=== PATIENT | female | born 1950 | race Caucasian/White ===

== ENCOUNTER 2018-04-05 12:46 | Day surgery (SDC) | payer MEDICARE, BC ==
[2018-04-05 13:09] VITALS: BP 140/88
[2018-04-05] MEDS ORDERED: Bupivacaine 0.25% W/EPI* 10 ML SDV ONE (14:03)
[2018-04-05] MEDS ORDERED: Lidocaine 2% JELLY* 20 ML (for OR use) ONE (14:03)
--- NOTE | 2018-04-06 03:51 | OP ---
DATE OF OPERATION: 04/05/18 [facility] DATE OF : 50 ATTENDING SURGEON: Brennen Lubin MD ELECTRICAL TRYOUT PERSON: None. ANESTHESIA: Local. 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 POST-OP DIAGNOSIS: Leukoplakia of the oral tongue. OPERATIVE PROCEDURE: CO2 laser ablation of leukoplakia of the oral tongue. ESTIMATED BLOOD LOSS: Negligible. SPECIMENS: None. INDICATION: This is a 67-year-old woman with a smoking history, who developed leukoplakia on the right side of the oral tongue. Biopsy done by another social media project manager revealed a benign verrucous lesion. Unfortunately, the lesion has progressed to involve a relatively large area of the patient's oral tongue and she has started to have a little bit of pain. The decision was made given the relatively wide area as the lesion to bring the patient the operating room for CO2 ablation under local anesthesia. DESCRIPTION OF PROCEDURE: The patient was draped and a time-out was performed, and 4% lidocaine jelly was applied to the right lateral oral tongue and then approximately 6 mL of 0.25% Marcaine with epinephrine were used to infiltrate the submucosal space of the oral tongue. Once adequate time had been allotted for vasoconstriction and anesthesia to be achieved, the procedure was begun. A was used to retract the patient's cheek. The tongue was retracted to the left. The patient's face was draped with saline moistened towels and the laser was used to essentially resurface the entire area of leukoplakia on the right lateral oral tongue. A setting of 3.5 gaspar was used. There was minimal bleeding. Frequent breaks were given to the patient to allow for swallowing and for areas of to be wiped off. At the conclusion of the procedure, the patient was brought to the recovery room in stable condition. [id number]/[facility] #: [id number] [facility]ENTER[facility]
== END 2018-04-05 16:00 | disposition home or self-care (01) ==
LOC: OR 12:46
PROVIDERS: ATTEND Otolaryngology
DX: K13.21 Leukoplakia of oral mucosa, including tongue (principal); Z87.891 Personal history of nicotine dependence; J44.9 Chronic obstructive pulmonary disease, unspecified; M81.0 Age-related osteoporosis without current pathological fracture; K21.9 Gastro-esophageal reflux disease without esophagitis; Z85.828 Personal history of other malignant neoplasm of skin; M19.90 Unspecified osteoarthritis, unspecified site; I71.9 Aortic aneurysm of unspecified site, without rupture

== ENCOUNTER 2018-11-15 09:06 | Emergency (ER) | payer MEDICARE, BC ==
[2018-11-15 09:31] VITALS: BP 126/76
--- NOTE | 2018-11-15 11:51 | UC ---
Complaint Female HPI - HPI Summary HPI Summary: PATIENT COMES IN CONCERNED ABOUT UTI. STATES THAT FOR A FEW DAYS SHE HAS HAD MID RIGHT SIDED ABDOMINAL PAIN THAT ONLY OCCURS WHEN SHE IS TRYING TO URINATE. HAS A SENSATION OF INCOMPLETE VOIDING AND HAS NOTED A LOWER THAN NORMAL AMOUNT OF URINE OUTPUT. NO FEVER, NAUSEA, BACK PAIN. DENIES URINARY FREQUENCY OR URGENCY. - History Of Current Complaint Chief Complaint: UCGU Stated Complaint: URINARY Time Seen by Provider: 11/15/18 10:19 Hx Obtained From: Patient Hx Last Menstrual Period: n/a Onset/Duration: Lasting Days, Still Present Severity Initially: Moderate Severity Currently: Moderate Pain Intensity: 0 Pain Scale Used: 0-10 Numeric Character: Dull Aggravating Factor(s): Urination Alleviating Factor(s): Nothing Associated Signs And Symptoms: Negative: Fever, Back Pain, Vaginal Bleeding/ Discharge, Nausea - Allergies/Home Medications Allergies/Adverse Reactions: Allergies Allergy/AdvReac Type Severity Reaction Status Date / Time No Known Allergies Allergy Verified 11/15/18 09:28 Home Medications: Home Medications Famotidine TAB* [Pepcid 20 MG TAB*] 20 mg PO DAILY 11/15/18 [History Confirmed 11/15/18] PMH/Surg Hx/FS Hx/Imm Hx Respiratory History: COPD, Asthma Other History Of: Negative For: HIV, Hepatitis B, Hepatitis C, Anticoagulant Therapy - Surgical History Surgical History: Yes Surgery Procedure, Year, and Place: R 2006 - Family History Known Family History: Positive: Cardiac Disease Negative: Hypertension - Social History Alcohol Use: None Substance Use Type: None Smoking Status (MU): Former Smoker Review of Systems All Other Systems Reviewed And Are Negative: Yes Constitutional: Positive: Negative Respiratory: Positive: Negative Cardiovascular: Positive: Negative Physical Exam Triage Information Reviewed: Yes Appearance: Well-Appearing, No Pain Distress, Well-Nourished Vital Signs: Initial Vital Signs Temp 98.6 F 11/15/18 09:27 Pulse 68 11/15/18 09:27 Resp 16 11/15/18 09:27 BP 126/76 11/15/18 09:27 Pulse Ox 98 11/15/18 09:27 Laboratory Tests 11/15/18 11:42 POC Urine Color Yellow POC Urine Clarity Clear POC Urine pH 5.5 POC Ur Specif [place] >= 1.030 POC Urine Protein 2+ A POC Ur Glucose (UA) Negative POC Urine Ketones Negative POC Urine Blood 3+ A POC Urine Nitrite Positive A POC Urine Bilirubin Negative POC Urine Urobilinogen 0.2 POC U Leukocyte Esteras 3+ A Vital Signs Reviewed: Yes Eyes: Positive: Conjunctiva Clear ENT: Positive: Hearing grossly normal Neck: Positive: Supple Respiratory Exam: Normal Cardiovascular Exam: Normal Abdomen Description: Positive: Nontender, Soft. Negative: CVA Tenderness (R), CVA Tenderness (L), Distended, Guarding Bowel Sounds: Positive: Present Musculoskeletal: Positive: No Edema Neurological: Positive: Alert Psychological: Positive: Age Appropriate Behavior Skin: Negative: Rashes Complaint Female Dx - Course Course Of Treatment: PATIENT WAS IN THE UC FOR ALMOST 3 HOURS AND WAS ONLY ABLE TO PRODUCE A FEW DROPS OF URINE. SHE COMES IN WITH SEVERAL DAYS OF ABDOMINAL PAIN AND SENSATION OF INCOMPLETE VOIDING. I AM CONCERNED FOR DEVELOPING BLADDER OBSTRUCTION. CERTAINLY UTI COULD BE CONTRIBUTING TO SX HOWEVER PT SHOULD HAVE MORE COMPLETE WORK-UP THAN WHAT IS AFFORDED IN THE . TO [facility] BY [facility]IVATE CAR. PT OFFERED TRANSPORT TO THE ED BY AMBULANCE BUT DECLINES. ADVISED THAT BY NOT TRAVELING IN A MONITORED SETTING SHE COULD BE RISKING WORSENING OF HER CONDITION THAT COULD POSE A THREAT TO HER LIFE, HEALTH AND MEDICAL SAFETY. SHE VERBALIZES UNDERSTANDING AND CONTINUES TO DECLINE AMBULANCE TRANSFER. - Differential Dx/Diagnosis Provider Diagnosis: Oliguria Discharge - Sign-Out/Discharge Documenting (check all that apply): Patient Departure All imaging exams completed and their final reports reviewed: No Studies - Discharge Plan Condition: Stable Disposition: TRANS HIGHER [facility] OF CARE FAC Referrals: Serena Omer MD [Primary Care Provider] - If Needed Additional Instructions: I AM CONCERNED ABOUT YOUR INABILITY TO URINATE AND YOUR SENSATION OF INCOMPLETE VOIDING. GO DIRECTLY TO THE [facility] ED FROM HERE FOR FURTHER EVALUATION. YOU HAVE DECLINED TRANSFER TO THE ED BY AMBULANCE. BE ADVISED THAT BY NOT TRAVELING IN A MONITORED SETTING YOU COULD BE RISKING WORSENING OF YOUR CONDITION THAT COULD POSE A THREAT TO YOUR LIFE, HEALTH AND MEDICAL SAFETY. - Billing Disposition and Condition Condition: STABLE Disposition: Trans Higher Lvl of Care Fac
--- NOTE | 2018-11-16 08:21 | ED ---
Progress - Progress Note Progress Note: Patient urine culture not obtained due to not being able to urinate. She was transferred to higher level of care for definitive treatment. No further action needed. Course/Dx - Diagnoses Provider Diagnoses: Oliguria Discharge - Sign-Out/Discharge Documenting (check all that apply): Patient Departure All imaging exams completed and their final reports reviewed: No Studies - Discharge Plan Condition: Stable Disposition: TRANS HIGHER LVL OF CARE FAC Referrals: Serena Omer MD [Primary Care Provider] - If Needed Additional Instructions: I AM CONCERNED ABOUT YOUR INABILITY TO URINATE AND YOUR SENSATION OF INCOMPLETE VOIDING. GO DIRECTLY TO THE [facility] ED FROM HERE FOR FURTHER EVALUATION. YOU HAVE DECLINED TRANSFER TO THE ED BY AMBULANCE. BE ADVISED THAT BY NOT TRAVELING IN A MONITORED SETTING YOU COULD BE RISKING WORSENING OF YOUR CONDITION THAT COULD POSE A THREAT TO YOUR LIFE, HEALTH AND MEDICAL SAFETY. - Billing Disposition and Condition Condition: STABLE Disposition: Trans Higher Lvl of Care Fac
== END 2018-11-15 11:51 | disposition short-term general hospital (02) ==
LOC: UCCORT 09:06
DX: R34 Anuria and oliguria (principal); J44.9 Chronic obstructive pulmonary disease, unspecified; Z87.891 Personal history of nicotine dependence
CPT/HCPCS: 81003; 99212; G0463

== ENCOUNTER 2019-05-09 06:54 | Day surgery (SDC) | payer MEDICARE, BC ==
[2019-05-09] MEDS ORDERED: Midazolam* 1 MG/ML 2 ML VIAL (2 MG) ONE (08:04)
[2019-05-09 09:27] VITALS: BP 133/82
--- NOTE | 2019-05-09 09:45 | OP ---
OPERATIVE NOTE: DATE OF OPERATION: 05/09/19 DATE OF : 50 SURGEON: Oliver Blank M.D. PREOPERATIVE DIAGNOSIS: Cataract, right. POSTOPERATIVE DIAGNOSIS: Cataract, right. OPERATIVE PROCEDURE: Extracapsular cataract extraction with IOL, intraocular lens implant right eye. PROCEDURE: The patient was brought to the operating room after being given 1/2% Alcaine with epineph rine drops in the preoperative area. The eye was prepped and draped in the usual sterile fashion. S terile drape and eyelid speculum were placed. Again, topical 1/2% Alcaine with epinephrine was given . A paracentesis incision was made at the 9 o'clock position with the No.75 blade. Clear cornea inc ision 2.2 x 2.2-mm was created at the 12 o'clock position starting at the anterior limbus using the 2 .2-mm keratome. The anterior chamber was irrigated with 0.4 mL of 1% non-preservative intracameral l idocaine and filled with DisCoVisc. A capsulorrhexis was completed using the cystotome and the Utrat a forceps. Hydrodissection was performed with balanced salt solution. The lens nucleus was removed w ith the Phacoemulsification handpiece without incident. Cortex was removed with the irrigation-aspir ation handpiece. The capsular bag was re-inflated using DisCoVisc and an [id number] 21 implant was inser monica with the shooter. The irrigation-aspiration handpiece was used to remove all residual DisCoVisc. The eye was refilled with balanced salt solution and the wound checked and found to be watertight. Topical Maxitrol drops were given. [id number]/[facility] #: [id number]
[2019-05-09] MEDS ORDERED: Ketorolac 0.5% OPHTH (NF) 0.5 % 5 ML BTL ONE (12:23)
[2019-05-09] MEDS ORDERED: Proparacaine 0.5% OPHTH.SOL* 15 ML BTL ONE (12:23)
[2019-05-09] MEDS ORDERED: Neomycin/Polymy/Dex OPTH.SUSP* MAXITROL 0.1% 5 ML ONE (12:23)
[2019-05-09] MEDS ORDERED: Cyclopentolate 1% OPTH.SOL* 2 ML BTL ONE (12:23)
[2019-05-09] MEDS ORDERED: Lidocaine 2% w/ EPI 1:200,000* 20 ML SDV VIAL ONE (12:23)
[2019-05-09] MEDS ORDERED: Phenylephrine OPHTH SOL 2.5%* 2 ML ONE (12:23)
[2019-05-09] MEDS ORDERED: Lidocaine 1% MPF ** 5 ML VIAL ONE (12:23)
[2019-05-09] MEDS ORDERED: Povidone Iodine 5% OPTH* 30 ML BTL ONE (12:23)
[2019-05-09] MEDS ORDERED: acetaZOLAMIDE TAB* 250 MG ONE (12:23)
== END 2019-05-09 09:22 | disposition home or self-care (01) ==
LOC: OREAST 06:54
PROVIDERS: ATTEND Specialist
DX: H25.11 Age-related nuclear cataract, right eye (principal); K21.9 Gastro-esophageal reflux disease without esophagitis; M81.0 Age-related osteoporosis without current pathological fracture; J44.9 Chronic obstructive pulmonary disease, unspecified; E55.9 Vitamin D deficiency, unspecified; Z87.891 Personal history of nicotine dependence; I71.2 Thoracic aortic aneurysm, without rupture
CPT/HCPCS: A9270-GY; J2250; V2632

== ENCOUNTER 2019-05-16 10:46 | Day surgery (SDC) | payer MEDICARE, BC ==
[~2019-05-16 10:46] MED LIST: Acetaminophen TAB* 325 MG PO PRN; Buffered Lidocaine 1% SYRIN* 1 ML/SYRINGE INTRADERM ONE; Cyclopentolate 1% OPTH.SOL* 2 ML BTL ONE; Ketorolac 0.5% OPHTH (NF) 0.5 % 5 ML BTL ONE; Lidocaine 1% MPF ** 5 ML VIAL ONE; Lidocaine 2% w/ EPI 1:200,000* 20 ML SDV VIAL ONE; Neomycin/Polymy/Dex OPTH.SUSP* MAXITROL 0.1% 5 ML ONE; Phenylephrine OPHTH SOL 2.5%* 2 ML ONE; Povidone Iodine 5% OPTH* 30 ML BTL ONE; Proparacaine 0.5% OPHTH.SOL* 15 ML BTL ONE; acetaZOLAMIDE TAB* 250 MG ONE
[2019-05-16] MEDS ORDERED: Midazolam* 1 MG/ML 5 ML VIAL (5 MG) ONE (12:58)
[2019-05-16 14:15] VITALS: BP 131/85
--- NOTE | 2019-05-16 21:29 | OP ---
DATE OF OPERATION: 05/16/19 [facility] DATE OF : 50 SURGEON: Oliver Blank MD PREOPERATIVE DIAGNOSIS: Cataract left eye. POSTOPERATIVE DIAGNOSIS: Cataract left eye. OPERATIVE PROCEDURE: Extracapsular cataract extraction with intraocular lens implant left eye eye. DESCRIPTION OF PROCEDURE: The patient was brought to the operating room after being given 1/2% Alcaine with epinephrine drops in the preoperative area. The eye was prepped and draped in the usual sterile fashion. Sterile drape and eyelid speculum were placed. Again, topical 1/2% Alcaine with epinephrine was given. A paracentesis incision was made at the 3 o'clock position with the No.75 blade. Clear cornea incision 2.2 x 2.2-mm was created at the 6 o'clock position starting at the anterior limbus using the 2.2-mm keratome. The anterior chamber was irrigated with 0.4 mL of 1% non-preservative intracameral lidocaine and filled with DisCoVisc. A capsulorrhexis was completed using the cystotome and the Utrata forceps. Hydrodissection was performed with balanced salt solution. The lens nucleus was removed with the Phacoemulsification handpiece without incident. Cortex was removed with the irrigation-aspiration handpiece. The capsular bag was re-inflated using DisCoVisc and an SN60WF 20.5 implant was inserted with the shooter. The irrigation-aspiration handpiece was used to remove all residual DisCoVisc. The eye was refilled with balanced salt solution and the wound checked and found to be watertight. Topical Maxitrol drops were given. [id number]/[facility] #: [id number] [facility]
== END 2019-05-16 13:58 | disposition home or self-care (01) ==
LOC: OREAST 10:46
PROVIDERS: ATTEND Specialist
DX: H25.12 Age-related nuclear cataract, left eye (principal); Z87.891 Personal history of nicotine dependence; H52.229 Regular astigmatism, unspecified eye; J44.9 Chronic obstructive pulmonary disease, unspecified; I71.2 Thoracic aortic aneurysm, without rupture
CPT/HCPCS: A9270-GY; J2250; V2632